=== PATIENT | female | born 1965 | race Caucasian/White ===

== ENCOUNTER 2025-03-17 19:52 | Emergency (ER) | payer BC ==
[~2025-03-17] VITALS: Ht 157.5 cm; Wt 59.0 kg
[2025-03-17 19:54] VITALS: O2SAT 94
[2025-03-17] MEDS: LEVETIRACETAM 500MG PREMIX 100 ML IV ONE (21:15)
[2025-03-17] MEDS: SODIUM CHLORIDE 0.9% (SEPSIS BOLUS) IV ONE (21:35)
[2025-03-17 21:38] LABS: HEMATOCRIT. 26.4 % (36.0-48.0); HEMOGLOBIN. 8.6 g/dL (12.0-16.0); MEAN PLATELET VOLUME 9.5 fl (7.4-10.4); PLATELET 293 x1000/uL (130-400); RED BLOOD CELL COUNT 2.91 mill/uL (4.2-5.4); RED CELL DISTRIBUTION WIDTH 14.4 % (11.6-14.6)
[2025-03-17 21:48] LABS: INR 1.0
[2025-03-17 21:53] LABS: CREATININE 0.8 mg/dL (0.6-1.0)
[2025-03-17 21:54] LABS: TROPONIN I HIGH SENSITIVITY 8 ng/L (3.0-34); UREA NITROGEN BLOOD 14 mg/dL (9-23)
[2025-03-17 21:55] LABS: ASPARTATE AMINOTRANSFERASE 24 IU/L (<34)
[2025-03-17 21:56] LABS: BILIRUBIN DIRECT 0.1 mg/dL (<=3.0); BILIRUBIN TOTAL 0.5 mg/dL (0.1-1.0); LYMPHOCYTES % MANUAL 9.0 % (20.0-60.0); MONOCYTES % MANUAL 7.0 % (2.0-8.0); NEUTROPHILS % MANUAL 84.0 % (45.0-75.0); PLATELET ESTIMATE NORMAL; PROTEIN TOTAL 5.8 g/dL (6.0-8.3)
[2025-03-17] MEDS: LEVOFLOXACIN 750MG PREMIX 150 ML IV ONE (23:03)
[2025-03-17 23:15] LABS: COLOR URINE BLOODY (YELLOW)
[2025-03-17 23:18] LABS: CLARITY URINE TURBID (CLEAR); SPECIFIC GRAVITY URINE 1.021 (1.005-1.030)
[2025-03-17 23:19] LABS: GLUCOSE URINE NEGATIVE (NEGATIVE); KETONES URINE NEGATIVE (NEGATIVE); NITRITE URINE NEGATIVE (NEGATIVE); OCCULT BLOOD URINE 3+ (NEGATIVE); PH URINE 5.0 (4.5-8.0); PROTEIN URINE 3+ (NEGATIVE)
[2025-03-17 23:20] LABS: LEUKOCYTE ESTERASE URINE 2+ (NEGATIVE); UROBILINOGEN URINE 0.2 E.U./dL (0.2-1.0)
[2025-03-17 23:21] LABS: BACTERIA URINE 3+; RBC URINE 50-100 /hpf (0-2); SQUAMOUS EPITHELIAL CELL URINE FEW /lpf (RARE/1+); WBC URINE 15-25 /hpf (0-2)
[2025-03-17] MEDS: MORPHINE SULFATE 4 MG/ML INJ (FOR IV/IM USE) IV ONE (23:29)
[2025-03-17] MEDS: ONDANSETRON HCL 4MG/2ML INJ IV ONE (23:30)
[2025-03-18] MEDS: ACETAMINOPHEN 1000MG/100ML 100 ML IV ONE (01:38)
[2025-03-18 01:42] VITALS: TEMP 37.1
[2025-03-18] MEDS: MORPHINE SULFATE 4 MG/ML INJ (FOR IV/IM USE) IV ONE (05:07)
[2025-03-18] MEDS: ONDANSETRON HCL 4MG/2ML INJ IV ONE (05:07)
[2025-03-18 05:26] VITALS: BP 116/63; PULSE 104; RESP 22; O2SAT 95
== END 2025-03-18 05:40 | disposition short-term general hospital (02) ==
LOC: ER 19:52 → CMPBEDREQ 03-19 07:57
DX: A41.9 Sepsis, unspecified organism (principal); R65.20 Severe sepsis without septic shock; G40.909 Epilepsy, unspecified, not intractable, without status epilepticus; I10 Essential (primary) hypertension; R55 Syncope and collapse; I95.9 Hypotension, unspecified
CPT/HCPCS: 80076; 80048; 81003; 83605; 83690; 85025; 85610; 86850; 86900; 86901; 87040; 87086; 84484; 36415; 84145; 71045; 70450; 74176; 93005; 96361; 96365; 96366; 96375; 99285; 96367; 96376; J2405 ×2; J2270 ×2; J1956; J7030; Z7610 ×3; J1953; J0131